=== PATIENT | female | born 1985 | race African-American/Black ===

== ENCOUNTER → 2020-02-10 | Emergency (ER) | payer OTHER ==
[~2020-02-10] VITALS: Ht 162.6 cm; Wt 65.9 kg
[~2020-02-10] MED LIST: HYDR-3164 PO; HYDROcodone/APAP 5/325MG 1 TAB TABLET PO ONE; ORPH100T PO; ORPHENADRINE CITRATE 60 MG/2 ML VIAL. IM ONE
[2020-02-10 12:09] VITALS: BP 118/70
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
== END ==
LOC: ER 11:22
DX: G89.11 Acute pain due to trauma (principal); M25.562 Pain in left knee; R51 Headache; Z98.51 Tubal ligation status; V49.9XXA Car occupant (driver) (passenger) injured in unspecified traffic accident, initial encounter; Y93.89 Activity, other specified; Y92.413 State road as the place of occurrence of the external cause; Y99.8 Other external cause status
CPT/HCPCS: 70450; 72072; 72125; 73564; 81025; 96372; 99285; J2360